=== PATIENT | female | born 1965 | race Two or more races ===

== ENCOUNTER 2023-12-31 19:59 | Inpatient (IN) | payer MEDICAID ==
[~2023-12-31] VITALS: Ht 162.6 cm; Wt 73.9 kg
[2023-12-31 21:06] LABS: BASOPHILS # (AUTO) 0.2 K/UL (0.0-0.2); BASOPHILS % (AUTO) 2.1 % (0.0-2.0); EOSINOPHILS # (AUTO) 0.1 K/uL (0.0-0.7); EOSINOPHILS % (AUTO) 1.6 % (0.0-7.0); HEMATOCRIT 35.9 % (31.2-41.9); LYMPHOCYTES # (AUTO) 3.3 K/uL (0.8-4.8); LYMPHOCYTES % (AUTO) 42.7 % (20.5-51.5); MEAN CORPUSCULAR HGB CONC 33 g/dL (32.3-35.6); MEAN CORPUSCULAR VOLUME 83.9 fL (75.5-95.3); MONOCYTES # (AUTO) 0.4 K/uL (0.1-1.30); MONOCYTES % (AUTO) 4.8 % (0.0-11.0); NEUTROPHILS # (AUTO) 3.8 K/uL (1.8-8.9); NEUTROPHILS % (AUTO) 48.8 % (38.5-71.5); PLATELET COUNT (AUTO) 424 K/uL (179-408); RED BLOOD CELL COUNT(AUTO) 4.29 MIL/uL (3.63-4.92); RED CELL DISTRIBUTION WIDTH 14.6 % (12.3-17.7); WHITE BLOOD COUNT (AUTO) 7.8 K/uL (3.8-11.8)
[2023-12-31 21:11] LABS: DIFFERENTIAL COMMENT 1
[2023-12-31 21:30] LABS: ALANINE AMINOTRANSFERASE 32 U/L (14-59); ALBUMIN 4.3 g/dL (3.4-5.0); ALKALINE PHOSPHATASE 65 U/L (50-136); ASPARTATE AMINOTRANSFERASE 17 U/L (15-37); BILIRUBIN,DIRECT 0.1 mg/dL (0.0-0.2); BILIRUBIN,TOTAL 0.3 mg/dL (0.2-1.0); CARBON DIOXIDE 29 mmol/L (21-32); CHLORIDE 102 mmol/L (98-107); CREATININE 0.9 mg/dL (0.6-1.3); GLUCOSE 205 mg/dL (74-106); NT-PRO BNP 1508 pg/mL (0-125); POTASSIUM 4.5 mmol/L (3.5-5.1); SODIUM SERUM 141 mmol/L (136-145); TOTAL PROTEIN, SERUM 8.3 g/dL (6.4-8.2); UREA NITROGEN, BLOOD 19 mg/dL (7-18)
[2023-12-31] MEDS ORDERED: METF-442 PO (22:09)
[2023-12-31] MEDS ORDERED: ROSU10TA2 PO (22:09)
[2023-12-31] MEDS ORDERED: CONCOR PO (22:09)
[2023-12-31] MEDS ORDERED: LISI-658 PO (22:09)
[2023-12-31] MEDS ORDERED: OMEP20TA5 PO (22:40)
[2023-12-31] MEDS ORDERED: ASPIRIN 325 MG TABLET ONE (22:42)
[2023-12-31] MEDS: ASPIRIN 81 MG TAB.CHEW PO ONE (22:44)
[2024-01-01] MEDS ORDERED: ONDANSETRON 4 MG/2 ML VIAL IV PRN (00:30)
[2024-01-01] MEDS ORDERED: NITROGLYCERIN 0.4 MG/TAB BOTTLE SL PRN ×2 (00:30→05:47)
[2024-01-01] MEDS ORDERED: REMEDY ESSENTIAL ZINC PASTE 113 GM TP PRN (00:30)
[2024-01-01] MEDS ORDERED: TEMAZEPAM 15 MG CAPSULE PO PRN (00:30)
[2024-01-01] MEDS ORDERED: MAGNESIUM HYDROXIDE 30 ML LIQUID UDC PO PRN (00:30)
[2024-01-01] MEDS ORDERED: MORPHINE SULFATE 2 MG/1 ML DISP.SYRIN IV PRN (00:30)
[2024-01-01] MEDS ORDERED: DEXTROSE 50% 50 ML DISP.SYRIN IV PRN (00:30)
[2024-01-01 02:20] VITALS: BP 107/53; TEMP 97.7; O2SAT 95
[2024-01-01] MEDS: HYDROCODONE/APAP 5-325MG TABLET PO PRN (02:29)
[2024-01-01 06:00] VITALS: BP 104/58; TEMP 97.5; O2SAT 100
[2024-01-01] MEDS: PANTOPRAZOLE SODIUM 40 MG TABLET.DR PO SCH (06:25)
[2024-01-01] MEDS: BLOOD SUGAR DIAGNOSTIC 1 EACH STRIP VI SCH (06:30)
[2024-01-01 07:46] VITALS: BP 114/61; TEMP 98.4; O2SAT 92
[2024-01-01] MEDS: ASPIRIN 81 MG TAB.CHEW PO SCH (08:46)
[2024-01-01] MEDS: ACETAMINOPHEN 325 MG TABLET PO PRN (08:46)
[2024-01-01] MEDS: ENOXAPARIN SODIUM 40 MG/0.4 ML DISP.SYRIN SQ SCH (08:48)
[2024-01-01 11:11] VITALS: BP 115/52; TEMP 97.6; O2SAT 100
[2024-01-01] MEDS: INSULIN REGULAR, HUMAN 1000 UNIT/10 ML VIAL SQ PRN (12:03)
[2024-01-01 16:44] VITALS: BP 119/59; TEMP 98.4; O2SAT 95
[2024-01-01 19:00] VITALS: BP 126/67; TEMP 98.3; O2SAT 97
[2024-01-01] MEDS ORDERED: ESOM40CA PO (20:01)
[2024-01-02] VITALS: BP 136/72; TEMP 98.2; O2SAT 95
[2024-01-02 00:41] LABS: *BILIRUBIN,URIN NEGATIVE (NEGATIVE); *BLOOD, URINE NEGATIVE (NEGATIVE); *CLARITY,URINE CLEAR (CLEAR); *COLOR,URINE YELLOW (YELLOW); *KETONES,URINE NEGATIVE (NEGATIVE); *PROTEIN,URINE NEGATIVE (NEGATIVE); *UROBILINOGEN,URINE 0.2 E.U./dl (NORMAL); LEUKOCYTE ESTERASE ,URINE NEGATIVE (NEGATIVE); NITRITE, URINE NEGATIVE (NEGATIVE); UGLUCOSE NEGATIVE (NEGATIVE)
[2024-01-02 04:00] VITALS: BP 126/72; TEMP 98; O2SAT 95
[2024-01-02 07:12] LABS: BASOPHILS # (AUTO) 0.1 K/UL (0.0-0.2); BASOPHILS % (AUTO) 1.2 % (0.0-2.0); EOSINOPHILS # (AUTO) 0.1 K/uL (0.0-0.7); EOSINOPHILS % (AUTO) 1.2 % (0.0-7.0); HEMATOCRIT 37.3 % (31.2-41.9); HEMOGLOBIN 12.9 g/dL (10.9-14.3); LYMPHOCYTES # (AUTO) 4.6 K/uL (0.8-4.8); LYMPHOCYTES % (AUTO) 52.6 % (20.5-51.5); MEAN CORPUSCULAR HEMOGLOBIN 28.9 uug (24.7-32.8); MEAN CORPUSCULAR HGB CONC 34 g/dL (32.3-35.6); MONOCYTES # (AUTO) 0.7 K/uL (0.1-1.30); MONOCYTES % (AUTO) 7.6 % (0.0-11.0); NEUTROPHILS # (AUTO) 3.3 K/uL (1.8-8.9); NEUTROPHILS % (AUTO) 37.4 % (38.5-71.5); PLATELET COUNT (AUTO) 440 K/uL (179-408); RED BLOOD CELL COUNT(AUTO) 4.45 MIL/uL (3.63-4.92); RED CELL DISTRIBUTION WIDTH 14.5 % (12.3-17.7); WHITE BLOOD COUNT (AUTO) 8.7 K/uL (3.8-11.8)
[2024-01-02 07:29] LABS: DIFFERENTIAL COMMENT 1
[2024-01-02 07:41] LABS: THYROID STIMULATING HORMONE 4.103 mIU/mL (0.358-3.740)
[2024-01-02 07:49] VITALS: BP 137/69; TEMP 97.6; O2SAT 98
[2024-01-02 07:50] LABS: CALCIUM 10.3 mg/dL (8.5-10.1); CREATININE 0.8 mg/dL (0.6-1.3); MAGNESIUM 1.9 mg/dL (1.8-2.4); PHOSPHOROUS 4.2 mg/dL (2.5-4.9); POTASSIUM 3.8 mmol/L (3.5-5.1)
[2024-01-02] MEDS ORDERED: ATOR10TA PO (11:09)
[2024-01-02] MEDS ORDERED: ALOG12.5 PO (11:09)
[2024-01-02] MEDS ORDERED: METO25TA6 PO (11:09)
[2024-01-02] MEDS ORDERED: ASPI81TA31 PO (11:17)
[2024-01-02] MEDS ORDERED: ATOR40TA PO (11:17)
[2024-01-02] MEDS ORDERED: PANT40TA49 PO (11:17)
[2024-01-02] MEDS ORDERED: ENOX40DI SQ (11:17)
[2024-01-02 11:29] VITALS: BP 131/67; TEMP 98.6; O2SAT 96
[2024-01-02 15:41] VITALS: BP 114/48; TEMP 97.5; O2SAT 96
[2024-01-02] MEDS: ATORVASTATIN 40 MG TABLET PO SCH (21:00)
== END 2024-01-02 20:55 | disposition short-term general hospital (02) | DRG 816 ==
LOC: ER 19:59 → TELE3 01-01
PROVIDERS: ADMIT Nurse Practitioner Acute Care; ATTEND Nurse Practitioner Acute Care
DX: T59.811A Toxic effect of smoke, accidental (unintentional), initial encounter (principal); I21.A1 Myocardial infarction type 2; I50.33 Acute on chronic diastolic (congestive) heart failure; D69.6 Thrombocytopenia, unspecified; I11.0 Hypertensive heart disease with heart failure; E11.9 Type 2 diabetes mellitus without complications; E78.5 Hyperlipidemia, unspecified; R09.89 Other specified symptoms and signs involving the circulatory and respiratory systems; Y92.019 Unspecified place in single-family (private) house as the place of occurrence of the external cause; I25.10 Atherosclerotic heart disease of native coronary artery without angina pectoris; Z79.899 Other long term (current) drug therapy; X00.0XXA Exposure to flames in uncontrolled fire in building or structure, initial encounter; Z79.84 Long term (current) use of oral hypoglycemic drugs
CPT/HCPCS: 36415; 71045; 83735; 84100; 84443; 84484; 85025; 85730; 93307; A4606; A4663; G0378; J1650; J1815

== ENCOUNTER 2025-02-16 01:22 | Emergency (ER) | payer MEDICAID ==
[~2025-02-16] VITALS: Ht 165.1 cm; Wt 72.6 kg
[~2025-02-16 01:22] MED LIST: ALOG12.5 PO; ASPI81TA31 PO; ATOR40TA PO; ENOX40DI SQ; ESOM40CA PO; LISI-658 PO; METO25TA6 PO; PANT40TA49 PO
[2025-02-16 01:25] VITALS: BP 153/92
[2025-02-16] MEDS ORDERED: LORAZEPAM 1 MG TABLET ONE (01:43)
[2025-02-16] MEDS ORDERED: ACETAMINOPHEN 500 MG TABLET ONE (01:43)
[2025-02-16] MEDS: ACETAMINOPHEN 500 MG TABLET PO ONE (01:47)
[2025-02-16] MEDS: LORAZEPAM 0.5 MG TABLET PO ONE (01:47)
[2025-02-16 01:59] LABS: PLATELET COUNT (AUTO) 323 K/uL (179-408); RED BLOOD CELL COUNT(AUTO) 4.16 MIL/uL (3.63-4.92); RED CELL DISTRIBUTION WIDTH 14.5 % (12.3-17.7); WHITE BLOOD COUNT (AUTO) 8.2 K/uL (3.8-11.8)
[2025-02-16 02:02] LABS: ERYTHROCYTE SEDIMENTATION RATE 14 MM/HR (0-20)
[2025-02-16 02:04] LABS: CREATININE 0.9 mg/dL (0.6-1.3); SODIUM SERUM 137 mmol/L (136-145); UREA NITROGEN, BLOOD 22 mg/dL (7-18)
[2025-02-16] MEDS ORDERED: AZITHROMYCIN 250 MG TABLET ONE (03:15)
[2025-02-16] MEDS ORDERED: GABA100C PO (03:16)
[2025-02-16 04:04] VITALS: BP 125/66; O2SAT 99
== END 2025-02-16 03:06 | disposition home or self-care (01) ==
LOC: ER 01:25
DX: R51.9 Headache, unspecified (principal); I11.9 Hypertensive heart disease without heart failure; E78.5 Hyperlipidemia, unspecified; Z79.82 Long term (current) use of aspirin; Z79.899 Other long term (current) drug therapy
CPT/HCPCS: 36415; 70450; 85025; 85651; 86140; A4606; A4663; A9150; Q0144